=== PATIENT | female | born 1940 | race Caucasian/White ===

== ENCOUNTER 2021-07-02 00:28 | Inpatient (IN) | payer MEDICARE ==
[~2021-07-02] VITALS: Ht 160 cm; Wt 64.9 kg
--- NOTE | 2021-07-02 00:40 | NUR ---
PT BIB [facility] FOR 5150 HOLD DTS, DENIES ANY SI UPON ARRIVAL. A/O X2, NO SOB OR LABORED BREATHING, AFEBRILE. CLEAR SPEECH, COMPLETE SENTENCES. DR. AVILA AT BEDSIDE, MSE IN PROGRESS.
[2021-07-02] MEDS ORDERED: MIRT-94 PO (01:09)
[2021-07-02] MEDS ORDERED: OMEP40CA21 PO (01:09)
[2021-07-02] MEDS ORDERED: CYAN100T44 PO (01:09)
[2021-07-02] MEDS ORDERED: cholecalciferol PO (01:09)
[2021-07-02] MEDS ORDERED: APIX5TAB PO (01:09)
[2021-07-02] MEDS ORDERED: SIMV-46 PO (01:09)
[2021-07-02] MEDS ORDERED: CHOL-9 (01:09)
[2021-07-02] MEDS ORDERED: HYDR-3980 PO (01:09)
[2021-07-02] MEDS ORDERED: LEVO137T2 PO (01:09)
[2021-07-02 01:12] LABS: HEMATOCRIT 30.8 % (31.2-41.9); MEAN CORPUSCULAR HEMOGLOBIN 31.2 uug (24.7-32.8); PLATELET COUNT (AUTO) 124 K/uL (179-408)
[2021-07-02 01:21] LABS: CREATININE 0.9 mg/dL (0.6-1.3); POTASSIUM 3.3 mmol/L (3.5-5.1)
--- NOTE | 2021-07-02 02:26 | NUR ---
GAVE REPORT TO JAYLAN WILLS.
--- NOTE | 2021-07-02 04:12 | NUR ---
Pt. admitted to [facility] ROOM 141B , under care of DR. BROWN AND DX: PSYCHOSIS 5150 HOLD DTS. Belongs List completed
[2021-07-02 04:51] VITALS: BP 150/72
[2021-07-02] MEDS ORDERED: MAG HYDROX/AL HYDROX/SIMETH 30 ML LIQUID UDC PO PRN (06:00)
[2021-07-02] MEDS ORDERED: LORAZEPAM 0.5 MG TABLET PO PRN (06:00)
[2021-07-02] MEDS ORDERED: BLOOD SUGAR DIAGNOSTIC 1 EACH STRIP VI ONE (06:00)
[2021-07-02] MEDS ORDERED: MAGNESIUM HYDROXIDE 30 ML LIQUID UDC PO PRN (06:00)
--- NOTE | 2021-07-02 08:32 | NUR ---
FIREARMS REPORT: Safety Admin Assistant completed and submitted a [employer] firearms report for 5150 grave disability certification. A copy of report has been placed in patient chart.
[2021-07-02 08:54] VITALS: BP 153/74
--- NOTE | 2021-07-02 09:47 | NUR ---
EDDA Initial Discharge Plan: Patient lives at [address] [place] [address]; ([phone]). This SW contacted patient's son Jordi ([phone]) to discuss treatment and discharge plan and was unavailable at this dicuss. EDDA left a voicemail. EDDA will coordinate discharge plan with family and doctor.
--- NOTE | 2021-07-02 09:57 | NUR ---
Treatment Plan: Pt unable to sign due to confusion.
[2021-07-02] MEDS ORDERED: POTASSIUM CHLORIDE 10 MEQ TAB.PRT.SR PO ONE (10:00)
--- NOTE | 2021-07-02 10:06 | NUR ---
EDDA Family Contact: EDDA spoke with patient's son Jordi ([phone]) and discussed treatment and discharge plan. He stated that patient has been living at home since 1962 and stated that she lives with friends who take care of pt. He stated the best plan would be for pt to go back home but is open to doctors recommendation. Jordi stated pt has three sons and they all live out of state but are involved in pt's care.
[2021-07-02] MEDS: CYANOCOBALAMIN 1,000 MCG TABLET PO SCH (14:32)
[2021-07-02] MEDS: LEVOTHYROXINE SODIUM 137 MCG TABLET PO SCH (14:33)
[2021-07-02] MEDS: CHOLECALCIFEROL 400 UNITS TABLET PO SCH (15:37)
[2021-07-02] MEDS: APIXABAN 5 MG TABLET PO SCH ×2 (15:38→21:59)
[2021-07-02 16:53] VITALS: BP 153/73
[2021-07-02 19:45] VITALS: BP 124/60
[2021-07-02] MEDS: risperiDONE 0.25 MG TABLET PO SCH (20:40)
[2021-07-02] MEDS: MIRTAZAPINE 15 MG TABLET PO SCH (20:40)
[2021-07-02] MEDS: SIMVASTATIN 20 MG TABLET PO SCH (20:40)
--- NOTE | 2021-07-03 02:26 | NUR ---
Received patient in bed ,earlier in the shift. This abstract writer spent time talking to the patient who is depressed, confused and delusional. When asked about SI, the patient stated " My son killed himself a few days ago. I was told to lay down in the boat ". The patient did not know where she was or how she had gotten here. This abstract writer oriented the patient and offered her snack which she refused but did take water with this writers encouragement. The patient is unkept and malodorous. A shower will be offered in the am. Frequent rounding being done to ensure patients safety and patient is monitored closely for SI. Abnormal labs are being monitored by the Epic group.No acute distress at this time.
[2021-07-03] MEDS: PANTOPRAZOLE SODIUM 40 MG TABLET.DR PO SCH (06:18)
[2021-07-03] MEDS: LEVOTHYROXINE SODIUM 137 MCG TABLET PO SCH (06:18)
[2021-07-03 06:32] LABS: BILIRUBIN,TOTAL 0.3 mg/dL (0.2-1.0); CREATININE 0.7 mg/dL (0.6-1.3); POTASSIUM 3.5 mmol/L (3.5-5.1); TOTAL PROTEIN, SERUM 6.5 g/dL (6.4-8.2)
--- NOTE | 2021-07-03 06:34 | NUR ---
The patient was up to the bathroom a couple of times during the night. Moderate assistance needed as well as the FWW. Total sleep hours were 7.45.This machine sign writer offered patient to be up in the yvonne chair but the patient declined. When asked if patient felt suicidal, the patient became angry and shouted "I have never felt suicidal ! " Patient back in bed, alarm on for safety.
[2021-07-03 07:20] LABS: MEAN CORPUSCULAR HEMOGLOBIN 32.3 uug (24.7-32.8); MEAN CORPUSCULAR VOLUME 95.8 fL (75.5-95.3); PLATELET COUNT (AUTO) 218 K/uL (179-408)
[2021-07-03 07:30] VITALS: BP 130/59
[2021-07-03] MEDS: CYANOCOBALAMIN 1,000 MCG TABLET PO SCH (08:39)
[2021-07-03] MEDS: CHOLECALCIFEROL 400 UNITS TABLET PO SCH (08:40)
[2021-07-03] MEDS: APIXABAN 5 MG TABLET PO SCH ×2 (08:41→20:07)
--- NOTE | 2021-07-03 09:57 | NUR ---
PT RECEIVED LYING IN BED RESTING COMFORTABLY. COMPLIANT WITH MEDICATIONS AND CARE. NO AGGRESSIVE OR COMBATIVE BEHAVIOR NOTED. PARANOID AND DELUSIONAL. BELIEVES THE POLICE "KEPT ME UP ALL NIGHT". REORIENTED TO REALITY.
[2021-07-03 13:29] LABS: *BILIRUBIN,URIN NEGATIVE (NEGATIVE); *BLOOD, URINE NEGATIVE (NEGATIVE); *CLARITY,URINE CLEAR (CLEAR); *COLOR,URINE LIGHT YELLOW (YELLOW); *KETONES,URINE NEGATIVE (NEGATIVE); *UROBILINOGEN,URINE 0.2 E.U./dl (NORMAL); LEUKOCYTE ESTERASE ,URINE 2+ (NEGATIVE); NITRITE, URINE NEGATIVE (NEGATIVE); UGLUCOSE NEGATIVE (NEGATIVE)
[2021-07-03 14:20] LABS: BACTERIA,URINE FEW /HPF (NONE SEEN); WBC,URINE 80-100 /HPF (0-3)
[2021-07-03 14:21] LABS: SQUAMOUS EPITHELIAL CELL,UR FEW /HPF (NONE SEEN); URINE AMORPHOUS PHOSPHATES FEW /HPF
[2021-07-03 16:00] VITALS: BP 114/60
[2021-07-03 20:00] VITALS: BP 164/69
[2021-07-03] MEDS: MIRTAZAPINE 15 MG TABLET PO SCH (20:04)
[2021-07-03] MEDS: risperiDONE 0.25 MG TABLET PO SCH (20:04)
[2021-07-03] MEDS: SIMVASTATIN 20 MG TABLET PO SCH (20:05)
[2021-07-03] MEDS: CEphaleXIN 500 MG CAPSULE PO SCH (20:53)
--- NOTE | 2021-07-04 05:16 | NUR ---
Received the patient in the hallway last night insisting on receiving her medications early. Historical Site Guide explained the situation and distracted the patient. This patient remains confused and delusional. Very little reality based conversations. Assistance provided with ambulation to the bathroom during the night. Total sleep hours were 8.30. Continuing to monitor.
[2021-07-04] MEDS: LEVOTHYROXINE SODIUM 137 MCG TABLET PO SCH (05:35)
[2021-07-04] MEDS: CEphaleXIN 500 MG CAPSULE PO SCH ×3 (05:35→20:16)
[2021-07-04] MEDS: PANTOPRAZOLE SODIUM 40 MG TABLET.DR PO SCH (05:35)
[2021-07-04] MEDS: ACETAMINOPHEN 325 MG TABLET PO PRN ×2 (05:59→20:15)
[2021-07-04 07:30] VITALS: BP 144/69
[2021-07-04] MEDS: CYANOCOBALAMIN 1,000 MCG TABLET PO SCH (08:09)
[2021-07-04] MEDS: CHOLECALCIFEROL 400 UNITS TABLET PO SCH (08:09)
[2021-07-04] MEDS: APIXABAN 5 MG TABLET PO SCH ×2 (08:11→20:16)
[2021-07-04 16:00] VITALS: BP 124/64
[2021-07-04] MEDS: SIMVASTATIN 20 MG TABLET PO SCH (20:15)
[2021-07-04] MEDS: risperiDONE 0.25 MG TABLET PO SCH (20:15)
[2021-07-04] MEDS: MIRTAZAPINE 15 MG TABLET PO SCH (20:15)
[2021-07-04 20:19] VITALS: BP 143/72
--- NOTE | 2021-07-05 06:10 | NUR ---
Patient slept 5.30 hours. Got up during the night very confused. Reoriented the patient and the patient went back to sleep. Safety stratiges in place. No SI.
[2021-07-05] MEDS: LEVOTHYROXINE SODIUM 137 MCG TABLET PO SCH (06:35)
[2021-07-05] MEDS: CEphaleXIN 500 MG CAPSULE PO SCH ×3 (06:35→21:01)
[2021-07-05] MEDS: PANTOPRAZOLE SODIUM 40 MG TABLET.DR PO SCH (06:35)
[2021-07-05 08:02] VITALS: BP 160/78
[2021-07-05] MEDS: CHOLECALCIFEROL 400 UNITS TABLET PO SCH (08:33)
[2021-07-05] MEDS: CYANOCOBALAMIN 1,000 MCG TABLET PO SCH (08:33)
[2021-07-05] MEDS: APIXABAN 5 MG TABLET PO SCH ×2 (08:34→21:10)
--- NOTE | 2021-07-05 12:19 | NUR ---
EDDA SNF Referral: EDDA faxed patients referral packet to [facility] (F:[phone]) attention to Adela.
--- NOTE | 2021-07-05 14:46 | NUR ---
EDDA Family Contact: SW left a message for patient's son Jordi ([phone]) and informed of patient's updated discharge plan and acceptance at [facility].
[2021-07-05 16:46] VITALS: BP 157/69
[2021-07-05 20:00] VITALS: BP 117/66
[2021-07-05] MEDS ORDERED: risperiDONE 0.5 MG TABLET PO SCH (21:00)
[2021-07-05] MEDS ORDERED: risperiDONE 0.25 MG TABLET PO SCH (21:00)
[2021-07-05] MEDS: SIMVASTATIN 20 MG TABLET PO SCH (21:01)
[2021-07-05] MEDS: MIRTAZAPINE 15 MG TABLET PO SCH (21:01)
--- NOTE | 2021-07-05 22:00 | NUR ---
Received to care, lying in bed, pleasant upon approach. She appears anxious at times. She continues to believe that her son committed suicide. Reality orientation was attempted, but she remains fixed in her beliefs. She is compliant with medications. Bedtime snack and water, were left at bedside. She c/o some minimal pain to her knees, but did not want any medication, for it. She was encouraged to ask for PRN pain med, if she changed her mind. As of 2199, she appears to be asleep. no distress noted. Will continue to monitor closely.
[2021-07-06] MEDS: ACETAMINOPHEN 325 MG TABLET PO PRN (05:46)
[2021-07-06] MEDS: CEphaleXIN 500 MG CAPSULE PO SCH ×3 (05:46→21:06)
--- NOTE | 2021-07-06 05:46 | NUR ---
PRN tylenol, given for low back pain 04/15
[2021-07-06] MEDS: PANTOPRAZOLE SODIUM 40 MG TABLET.DR PO SCH (06:06)
[2021-07-06] MEDS: LEVOTHYROXINE SODIUM 137 MCG TABLET PO SCH (06:06)
--- NOTE | 2021-07-06 06:32 | NUR ---
slept 7.75 hours, total. appears to be asleep, now. no distress, noted.
[2021-07-06 07:56] VITALS: BP 153/67
[2021-07-06] MEDS: CHOLECALCIFEROL 400 UNITS TABLET PO SCH (08:30)
[2021-07-06] MEDS: CYANOCOBALAMIN 1,000 MCG TABLET PO SCH (08:31)
[2021-07-06] MEDS: APIXABAN 5 MG TABLET PO SCH ×2 (08:34→20:54)
--- NOTE | 2021-07-06 09:15 | NUR ---
EDDA Family Contact: EDDA spoke with patient's son Jordi ([phone]) and discussed discharge plan, he stated pt is accepted at [facility]. He was agreeable with this. Son stated pt lives at home with brothers gf and two friends who take care of pt at home.
--- NOTE | 2021-07-06 09:22 | NUR ---
EDDA Family Contact: SW spoke with patient's son Jordi ( ) and would prefer to be called on his cellphone number during the afternoons.
[2021-07-06] MEDS: HYDROCODONE/APAP 5-325MG TABLET PO PRN (12:04)
--- NOTE | 2021-07-06 14:50 | NUR ---
patient is AAO x4 Ambulating with FWW ,assisted with all ADLS,c/o back pain [place] 1 tab given as ordered.denies any SI ,will continue close monitoring.
[2021-07-06 16:00] VITALS: BP 132/61
[2021-07-06 20:09] VITALS: BP 135/63
[2021-07-06] MEDS: risperiDONE 1 MG TABLET PO SCH (20:51)
[2021-07-06] MEDS: MIRTAZAPINE 15 MG TABLET PO SCH (20:51)
[2021-07-06] MEDS: SIMVASTATIN 20 MG TABLET PO SCH (20:52)
[2021-07-06] MEDS ORDERED: risperiDONE 0.5 MG TABLET PO SCH (21:00)
--- NOTE | 2021-07-06 22:00 | NUR ---
received to care, lying in bed, pleasant upon approach. remains fixed on the idea that her son committed suicide. reality orientation attempted, but she remains fixed in her beliefs "my son was a drug addict. i believe he intentionally overdosed". compliant with medications. snack and fluids were given. hyperverbal at times. 1;1 interaction provided. as of 2199, she remains awake. will continue to monitor closely.
[2021-07-06] MEDS: TEMAZEPAM 7.5 MG CAPSULE PO PRN (22:52)
--- NOTE | 2021-07-06 22:52 | NUR ---
Remains awake. PRN restoril was given, at her request.
--- NOTE | 2021-07-06 23:37 | NUR ---
Appears to be asleep. no distress noted.
[2021-07-07] MEDS: CEphaleXIN 500 MG CAPSULE PO SCH ×3 (06:23→21:18)
[2021-07-07] MEDS: LEVOTHYROXINE SODIUM 137 MCG TABLET PO SCH (06:23)
[2021-07-07] MEDS: PANTOPRAZOLE SODIUM 40 MG TABLET.DR PO SCH (06:23)
[2021-07-07] MEDS: HYDROCODONE/APAP 5-325MG TABLET PO PRN ×2 (06:23→20:43)
--- NOTE | 2021-07-07 06:56 | NUR ---
slept 6 hours total. given PRN norco at 0623, for lower back pain 08/15. also c/o severe itching to bilateral lower calves. no redness or excoriation noted. pt thinks its related to the hospital socks. lotion applied to affected areas. will endorse to oncoming shift. for f/u.
[2021-07-07 07:30] VITALS: BP 156/81
[2021-07-07] MEDS: CYANOCOBALAMIN 1,000 MCG TABLET PO SCH (08:34)
[2021-07-07] MEDS: CHOLECALCIFEROL 400 UNITS TABLET PO SCH (08:34)
[2021-07-07] MEDS: APIXABAN 5 MG TABLET PO SCH ×2 (08:36→20:42)
--- NOTE | 2021-07-07 14:48 | NUR ---
EDDA Family Contact: EDDA spoke with patient's son Jordi ([phone]) and notified that pt will be discharged on Monday07/10/21 to [facility]. He was aware and agreeable with this.
--- NOTE | 2021-07-07 14:50 | NUR ---
EDDA PC Hearing: Patient had 5250 probable cause hearing today and it was upheld for grave disability.
--- NOTE | 2021-07-07 16:21 | NUR ---
received patient AAO x4 pleasant upon approach with episode of delusional regarding her son being .reality orientation attempted, but remains very fixed in her beliefs. compliant with all medication and care fluids and snack were given.currently lying in bed.no acute distress noted.
[2021-07-07 18:00] VITALS: BP 144/70
[2021-07-07] MEDS: SIMVASTATIN 20 MG TABLET PO SCH (20:38)
[2021-07-07] MEDS: risperiDONE 1 MG TABLET PO SCH (20:38)
[2021-07-07] MEDS: MIRTAZAPINE 15 MG TABLET PO SCH (20:38)
[2021-07-07 21:11] VITALS: BP 119/55
[2021-07-08] MEDS: CEphaleXIN 500 MG CAPSULE PO SCH ×2 (06:29→13:09)
[2021-07-08] MEDS: LEVOTHYROXINE SODIUM 137 MCG TABLET PO SCH (06:29)
[2021-07-08] MEDS: PANTOPRAZOLE SODIUM 40 MG TABLET.DR PO SCH (06:29)
--- NOTE | 2021-07-08 06:45 | NUR ---
GPS: Pt.slept 7.15 last night. Med.compliant. No adverse reactions noted from atb. Fluids encouraged. Goes to the bathroom for elimination purposes. Will continue to re-direct prn.
[2021-07-08 07:30] VITALS: BP 147/72
[2021-07-08] MEDS: CYANOCOBALAMIN 1,000 MCG TABLET PO SCH (08:32)
[2021-07-08] MEDS: HYDROCODONE/APAP 5-325MG TABLET PO PRN ×2 (08:34→20:10)
[2021-07-08] MEDS: CHOLECALCIFEROL 400 UNITS TABLET PO SCH (08:36)
[2021-07-08] MEDS: APIXABAN 5 MG TABLET PO SCH ×2 (08:36→20:42)
--- NOTE | 2021-07-08 09:00 | NUR ---
GPS: pt alert and verbally responsive and cooperative with care. pt took medication and tolerated well. no suicidal ideation noted. pt able to understand and verbalized needs.
--- NOTE | 2021-07-08 14:32 | NUR ---
EDDA Family Contact: EDDA left a message for patient's son Jordi ([phone]) and stated that patient will be discharged Monday to [facility].
[2021-07-08 16:07] VITALS: BP 130/68
--- NOTE | 2021-07-08 17:26 | NUR ---
GPS: pt on bed, alert and oriented x 3. verbally responsive. pt stated that she will be discharge tomorrow and would like to speak with social studies teacher. pt informed that there is no schedule for discharge tomorrow. redirected pt.
[2021-07-08] MEDS: BENZTROPINE MESYLATE 0.5 MG TABLET PO SCH (20:07)
[2021-07-08] MEDS: SIMVASTATIN 20 MG TABLET PO SCH (20:07)
[2021-07-08] MEDS: risperiDONE 1 MG TABLET PO SCH (20:07)
[2021-07-08] MEDS: MIRTAZAPINE 15 MG TABLET PO SCH (20:07)
[2021-07-08 20:12] VITALS: BP 142/75
[2021-07-09] MEDS: PANTOPRAZOLE SODIUM 40 MG TABLET.DR PO SCH (06:20)
[2021-07-09] MEDS: LEVOTHYROXINE SODIUM 137 MCG TABLET PO SCH (06:20)
[2021-07-09 07:30] VITALS: BP 121/92
[2021-07-09] MEDS: CHOLECALCIFEROL 400 UNITS TABLET PO SCH (08:34)
[2021-07-09] MEDS: CYANOCOBALAMIN 1,000 MCG TABLET PO SCH (08:34)
[2021-07-09] MEDS: APIXABAN 5 MG TABLET PO SCH ×2 (08:35→21:00)
[2021-07-09] MEDS: HYDROCODONE/APAP 5-325MG TABLET PO PRN ×2 (08:36→17:28)
--- NOTE | 2021-07-09 15:31 | NUR ---
EARLY ENTRY DISCHARGE NOTE FOR (07/12/21): Patient will be discharged back to [facility], [address] [address] ([phone]) via ambulance. Patient will be transported by ambulance at 12pm. Spoke with Adela business support coordinator at the facility who states they are ready to accept the patient today. Patient will follow-up at the facility with Dr. Chapa Ruffler and Dr. Jama Psychiatrist. Patient is alert and oriented times x3, denies suicidal or homicidal ideation, and is aware and agreeable with discharge plans. Patient presents with appropriate mood and congruent affect. Patient is unable to plan for self-care at this time, however, is willing to accept care provided at the facility. Patients abhilash Bacon ([phone]) is aware and agreeable with discharge plan.
[2021-07-09 16:00] VITALS: BP 119/58
[2021-07-09 20:05] VITALS: BP 130/66
[2021-07-09] MEDS: TEMAZEPAM 7.5 MG CAPSULE PO PRN (20:58)
[2021-07-09] MEDS: SIMVASTATIN 20 MG TABLET PO SCH (20:59)
[2021-07-09] MEDS: risperiDONE 1 MG TABLET PO SCH (20:59)
[2021-07-09] MEDS: BENZTROPINE MESYLATE 0.5 MG TABLET PO SCH (20:59)
[2021-07-09] MEDS: MIRTAZAPINE 15 MG TABLET PO SCH (20:59)
--- NOTE | 2021-07-10 01:01 | NUR ---
2144--Pt's HS dose of Eliquis administered, witnessed by Tj Patel LVN. Said medication needed a co-signor but nurses on duty could not pevide one on the eMAR due to some technical problems. Issue reported to IT flaco fernández/o Willis. Job order #[id number] given by IT. Pharmacy likewise made aware of said issue on [employer] at the time. Addendum: 07/10/21 at 0114 by ARMANDO CASILLAS RN 2144--Pt's HS dose of Eliquis administered, witnessed by Tj Patel LVN. Said medication needed a co-signor but nurses on duty could not provide one on the eMAR due to some technical problems. Issue reported to IT flaco fernández/toño Pedro, said they would try to solve the problem the next day. Job order #[id number] given by IT. Pharmacy likewise made aware of said issue on [employer] at the time.
--- NOTE | 2021-07-10 03:20 | NUR ---
Pt found sitting on her bathroom floor, reported wanting to use the toilet and fell. Per pt, she got up from bed and left her walker by the bedside. She reportedly fell and hit her head on the wall before she reached the toilet. Pt assessed, assisted to the toilet and then back to bed. Upon assessment, pt had no scratch, wound, discoloration on any body part. VS WNL, no s/s of distress. Pt complained of some head discomfort. Safety precautions remain in place--bed in low position, bed alarm on, siderails up x2, q15min checks. [facility] [place] [facility] Community Recreation Programmer informed, Du Mitchell DNP made aware, ordered stat CT scan of the head w/o contrast and CT scan of cervical spine w/o contrast. Will continue to monitor.
[2021-07-10] MEDS: HYDROCODONE/APAP 5-325MG TABLET PO PRN ×3 (05:52→23:58)
[2021-07-10] MEDS: PANTOPRAZOLE SODIUM 40 MG TABLET.DR PO SCH (06:36)
[2021-07-10] MEDS: LEVOTHYROXINE SODIUM 137 MCG TABLET PO SCH (06:36)
[2021-07-10 08:00] VITALS: BP 120/75
[2021-07-10] MEDS: CYANOCOBALAMIN 1,000 MCG TABLET PO SCH (08:16)
[2021-07-10] MEDS: CHOLECALCIFEROL 400 UNITS TABLET PO SCH (08:16)
[2021-07-10] MEDS: APIXABAN 5 MG TABLET PO SCH ×2 (08:17→20:25)
[2021-07-10 16:00] VITALS: BP 141/71
[2021-07-10 19:48] VITALS: BP 133/60
[2021-07-10] MEDS: BENZTROPINE MESYLATE 0.5 MG TABLET PO SCH (20:22)
[2021-07-10] MEDS: SIMVASTATIN 20 MG TABLET PO SCH (20:22)
[2021-07-10] MEDS: MIRTAZAPINE 15 MG TABLET PO SCH (20:23)
[2021-07-10] MEDS: risperiDONE 1 MG TABLET PO SCH (20:23)
[2021-07-10] MEDS: TEMAZEPAM 7.5 MG CAPSULE PO PRN (21:21)
[2021-07-11] MEDS: LEVOTHYROXINE SODIUM 137 MCG TABLET PO SCH (06:32)
[2021-07-11] MEDS: PANTOPRAZOLE SODIUM 40 MG TABLET.DR PO SCH (06:32)
[2021-07-11] MEDS: HYDROCODONE/APAP 5-325MG TABLET PO PRN ×2 (06:45→16:25)
[2021-07-11] MEDS: CYANOCOBALAMIN 1,000 MCG TABLET PO SCH (08:12)
[2021-07-11] MEDS: CHOLECALCIFEROL 400 UNITS TABLET PO SCH (08:12)
[2021-07-11] MEDS: APIXABAN 5 MG TABLET PO SCH ×2 (08:15→20:51)
[2021-07-11 08:26] VITALS: BP 122/67
[2021-07-11 15:58] VITALS: BP 124/73
--- NOTE | 2021-07-11 17:52 | NUR ---
patient compliant with medications and care. remains delusional and paranoid at times. no combative noted.
[2021-07-11 20:08] VITALS: BP 115/56
--- NOTE | 2021-07-11 20:30 | NUR ---
received patient in the day room watching TV. she is noted A/O x 3 calm and pleasant upon approached. patient is able to verbalized feelings. Pt is aware of her discharge in the morning. She denied SI/HI/VH/AH. she is able to CFS. she was given PO fluids and snacks/ she is reassured for her safety. safety and fall precaution in place. will continue to monitor.
[2021-07-11] MEDS: SIMVASTATIN 20 MG TABLET PO SCH (20:49)
[2021-07-11] MEDS: BENZTROPINE MESYLATE 0.5 MG TABLET PO SCH (20:49)
[2021-07-11] MEDS: MIRTAZAPINE 15 MG TABLET PO SCH (20:49)
[2021-07-11] MEDS: risperiDONE 1 MG TABLET PO SCH (20:50)
[2021-07-12] MEDS: PANTOPRAZOLE SODIUM 40 MG TABLET.DR PO SCH (06:05)
[2021-07-12] MEDS: HYDROCODONE/APAP 5-325MG TABLET PO PRN (06:05)
[2021-07-12] MEDS: LEVOTHYROXINE SODIUM 137 MCG TABLET PO SCH (06:05)
[2021-07-12 08:03] VITALS: BP 140/77
[2021-07-12] MEDS: CHOLECALCIFEROL 400 UNITS TABLET PO SCH (08:24)
[2021-07-12] MEDS: CYANOCOBALAMIN 1,000 MCG TABLET PO SCH (08:24)
[2021-07-12] MEDS: APIXABAN 5 MG TABLET PO SCH (08:25)
--- NOTE | 2021-07-12 14:24 | NUR ---
Discharged patient to [facility], [facility] via ambulance. all personal belonging returned to patient . Patient will follow-up at the facility with Dr. Chapa Human Resources Supervisor and Dr. Jama Psychiatrist. Patient is alert and oriented times x3, denies suicidal or homicidal ideation, vss.
== END 2021-07-12 14:00 | DRG 885 ==
LOC: ER 00:38 → GPS 03:23
PROVIDERS: ADMIT Psychiatry & Neurology Psychosomatic Medicine; ATTEND Nurse Practitioner Acute Care
DX: F33.3 Major depressive disorder, recurrent, severe with psychotic symptoms (principal); F01.50 Vascular dementia, unspecified severity, without behavioral disturbance, psychotic disturbance, mood disturbance, and anxiety; E44.0 Moderate protein-calorie malnutrition; E87.0 Hyperosmolality and hypernatremia; D64.9 Anemia, unspecified; E03.9 Hypothyroidism, unspecified; G89.29 Other chronic pain; D72.829 Elevated white blood cell count, unspecified; E88.09 Other disorders of plasma-protein metabolism, not elsewhere classified; E86.1 Hypovolemia; E78.5 Hyperlipidemia, unspecified; E87.6 Hypokalemia; Z73.6 Limitation of activities due to disability; Z86.711 Personal history of pulmonary embolism; Z79.01 Long term (current) use of anticoagulants; F39 Unspecified mood [affective] disorder; F29 Unspecified psychosis not due to a substance or known physiological condition; Z68.25 Body mass index [BMI] 25.0-25.9, adult; Z90.12 Acquired absence of left breast and nipple; Z86.73 Personal history of transient ischemic attack (TIA), and cerebral infarction without residual deficits; Z96.642 Presence of left artificial hip joint; Z20.822 Contact with and (suspected) exposure to COVID-19
CPT/HCPCS: 36415; 70450; 72125; 85025; 87086; 97161